=== PATIENT | female | born 1940 | race Caucasian/White ===

== ENCOUNTER → 2018-02-10 08:02 | Outpatient (CLI) | payer MEDICARE, OTHER, SELFPAY ==
[2018-02-10 12:09] LABS: Absolute Lymphocyte Count 1.07 X10^3/ul (0.83-4.51); Absolute Neutrophil Count 1.4 X10^3/uL (2.0-7.7); Basophil# 0.03 X10^3/uL; Basophil% 1.1 % (0-1); Eosinophils% 3.7 % (0-5); Hematocrit 39.1 % (37-47); Hemoglobin 13.1 g/dl (12.0-15.0); Lymphocyte # 1.07 X10^3/ul (4.0); Lymphocyte % 39.2 % (19-41); Mean Corp Hgb Conc 33.5 g/gl (32-36); Mean Corpuscular Hgb 32.2 pg (27.0-32.0); Mean Corpuscular Volume 96.1 fL (81-99); Mean Platelet Vol. 10.7 fl (6.2-12.0); Monocyte# 0.17 X10^3/uL; Monocyte% 6.2 % (0-10); Neutrophil # 1.36 X10^3/uL (2.7-7.7); Neutrophil % 49.8 % (47-70); POSITIVE COUNT NO; POSITIVE DIFFERENTIAL NO; POSITIVE MORPHOLOGY NO; Platelet Count 156 K/mm3 (150-450); RBC Distribution Width CV 14.1 % (11.6-14.6); RBC Distribution Width SD 48.2 fl (35.1-43.9); Red Blood Count 4.07 M/mm3 (4.2-5.4); White Blood Count 2.7 K/mm3 (4.4-11.0)
[2018-02-10 12:25] LABS: ALB/GLOB Ratio 1.2 RATIO (0.9-2.4); AST(SGOT) 17 U/L (15-37); Alanine Aminotransfer ALT/SGPT 23 U/L (13-56); Albumin, Serum 3.7 g/dL (3.2-5.0); Alkaline Phosphatase 73 U/L (45-117); Anion Gap 8 (5-15); BUN 11 mg/dL (7-18); BUN/Creat Ratio 15.3 RATIO (10-20); Calcium,Total 8.5 mg/dL (8.5-10.1); Chloride 108 mmol/L (98-107); Cholesterol 226 mg/dL (200); Creatinine, Serum 0.72 mg/dL (0.55-1.02); EST Glomerular Filtration Rate 83 mL/min (>60); Est Glom Filt Rate - Afr Amer 101 mL/min (>60); Globulin 3.2 g/dL (2.2-4.2); Glucose 88 mg/dL (74-106); High Density Lipoprotein 58 mg/dL; Potassium 3.7 mmol/L (3.5-5.1); Protein, Total 6.9 g/dL (6.4-8.2); Sodium Level 143 mmol/L (136-145); Triglycerides 122 mg/dL; Very Low Density Lipoprotein 24 mg/dL (5-40)
== END ==
PROVIDERS: Family Provider Family Medicine; PCP Family Medicine; Visit Provider Family Medicine
DX: Z00.01 Encounter for general adult medical examination with abnormal findings (principal); E78.5 Hyperlipidemia, unspecified; M85.80 Other specified disorders of bone density and structure, unspecified site; M19.041 Primary osteoarthritis, right hand; M19.042 Primary osteoarthritis, left hand; Z51.81 Encounter for therapeutic drug level monitoring
CPT/HCPCS: 36415; 80053; 80061; 85025

== ENCOUNTER → 2018-07-22 14:58 | Outpatient (CLI) | payer MEDICARE, OTHER, SELFPAY ==
[2018-07-22 17:50] LABS: Absolute Lymphocyte Count 0.93 X10^3/ul (0.83-4.51); Absolute Neutrophil Count 0.2 X10^3/uL (2.0-7.7); Basophil# 0.01 X10^3/uL; Basophil% 0.8 % (0-1); Eosinophil# 0.03 X10^3/uL; Eosinophils% 2.5 % (0-5); Hematocrit 34.6 % (37-47); Hemoglobin 11.7 g/dl (12.0-15.0); Lymphocyte # 0.93 X10^3/ul (4.0); Lymphocyte % 76.2 % (19-41); Mean Corp Hgb Conc 33.8 g/gl (32-36); Mean Corpuscular Hgb 33.8 pg (27.0-32.0); Mean Platelet Vol. 10.1 fl (6.2-12.0); Monocyte# 0.03 X10^3/uL; Monocyte% 2.5 % (0-10); Neutrophil # 0.22 X10^3/uL (2.7-7.7); Platelet Count 78 K/mm3 (150-450); RBC Distribution Width CV 15.2 % (11.6-14.6); RBC Distribution Width SD 55.1 fl (35.1-43.9); Red Blood Count 3.46 M/mm3 (4.2-5.4)
[2018-07-22 18:45] LABS: Differential Indicated SCAN CRITERIA MET; POSITIVE COUNT YES; POSITIVE DIFFERENTIAL YES; POSITIVE MORPHOLOGY YES
[2018-07-22 18:47] LABS: Platelet Estimate MOD DEC (ADEQ); Red Cell Morphology NORM C+C NORMAL (NORM C&C); White Blood Count 1.2 K/mm3 (4.4-11.0)
[2018-07-23 13:42] LABS: Pathologist Review Reviewed
== END ==
PROVIDERS: Family Provider Family Medicine; PCP Family Medicine; Visit Provider Family Medicine
DX: D72.810 Lymphocytopenia (principal)
CPT/HCPCS: 36415; 85025

== ENCOUNTER → 2018-08-05 07:13 | Outpatient (CLI) | payer MEDICARE, OTHER, SELFPAY ==
[2018-07-28 10:42] VITALS: BMI 25.4
[2018-08-05] VITALS (10 sets, daily range): BP systolic 89–132; BP diastolic 30–86; PULSE 68–93; RESP 12–18; TEMP 37.3; O2SAT 93–99; BMI 25.0
--- NOTE | 2018-08-05 | BMB_PTH ---
PATIENT: RICHIE MAR LOC: CT U#:[id number] AGE/SX: 84/F ROOM: RE08/05/[address]: Dr. Chan Pacheco MD : 1940 BED: DIS: SPEC #: [id number] RECD: 08/05/18 12:15 STATUS: NORAH BRITTANY #: [id number] GEORGINA: 08/05/18 00:[address]: Chan Pacheco DEPT: BONE MARROW RECD BY: Geoff Leo ENTERED: 08/05/18 12:17 SP TYPE: BMB OTHR DR: Dr. 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 Complete report of flow cytometry study is viewable in patient's PCR. Cytogenetic studies are pending at this time. SJ:richard 08/10/18 COMMENT Bone marrow smears are reviewed with Dr. Franklin who concurs with the above diagnosis. This case is discussed with Dr. Pacheco on 08/06/18. BONE MARROW STUDY Slides are reviewed. CBC DATE: 08/05/18 WBC 1.0; RBC 3.50; HGB 11.9; HCT 35.1; MCV 100.3; RDW 15.2; PLTS 96022 SEGS 22.5%; LYMPHS 64.3%; MONOS 11.2%; EOS 2.0%; BASOS 0% PERIPHERAL SMEAR: Submitted. RBC: Macrocytosis WBC: Leukopenia and neutropenia. Rare immature cells consistent with blasts are noted. PLTS: Decreased BONE MARROW ASPIRATE DIFFERENTIAL: 200 cell count. Blasts % (normal 0-2): 61 Promyelocytes % (normal 1-5): 1 Myelocytes and metamyelocytes % (normal 17-41): 9 Bands and Segs % (normal 15-32): 1 Eos % (normal 1-6): 1 Basos % (normal 0-1): 0 Monocytes % (normal 0-4): 0 Erythroid Precursors % (normal 17-35): 22 Lymphocytes % (normal 7-13): 4 Plasma Cells % (normal 0-2): 1 ASPIRATE FINDINGS: Site: Left hip Spicular, Cellular M/E ratio: 0.5 (Normal 1.5-4.0) Megakaryocytes: Decreased in number and a few micromegakaryocytes are also noted. Erythropoiesis: Focal mild megaloblastoid changes are noted. Granulopoiesis: Maturation arrest. Marked decrease of myelocytes, metamyelocytes and mature neutrophils are noted. Comment: Marked increase of immature cells consistent with blasts are noted. CORE BIOPSY FINDINGS: Site: Left hip Adequacy: Adequate Cellularity: 40% M/E ratio: Decreased Megakaryocytes: Decreased in number. Bony trabeculae: Limited in evaluation. Small amount of bony trabeculae are noted. Granulomas: Absent. Lymphoid aggregate: Absent. Atypical infiltrate: Present Comment: Immunohistochemistry ([id number]) supports the diagnosis of increased number of blasts. ASPIRATE CLOT FINDINGS: Site: Left hip Marrow particles: a few Cellularity: 40% M/E ratio: Decreased in number. Megakaryocytes: Decreased in number. Granulomas: Absent. Lymphoid aggregates: Absent. Atypical infiltrates: Present Comment: Immunohistochemistry ([id number]) supports the diagnosis of increased number of blasts. SPECIAL STAINS WITH MATCHED CONTROLS: Iron: Increased, 4+, atypical or ring sideroblasts are not seen. Reticulin: No significant increase of reticulin fibers is noted. PAS: Highlights myeloid cells and megakaryocytes. BONE MARROW GROSS A - Received is a container labeled with the patient's name and designated left hip bone marrow. The specimen consists of an elongated piece of louis bone measuring 0.6 cm in length and 0.1 cm in diameter. The specimen is totally submitted in one cassette after decalcification. B - Received labeled with the patient's name and designated left hip bone marrow is a specimen that consists of approximately multiple blood clots submitted for cell block preparation. C - Also received are 12 unstained slides. The unstained slides are submitted for appropriate staining. Also received are two green top tubes which are sent to our reference lab for flow, cytogenetics, FISH x2. / SJ:rg 08/05/18 TC:0 CPT: 00125, 63709, 15053 x2, 75550 x3, 28346 ADDENDUM ADDENDUM ADDENDUM ADDENDUM ADDENDUM ADDENDUM ADDENDUM ADDENDUM ADDENDUM ADDENDUM ADDENDUM ADDENDUM ADDENDUM ADDENDUM ADDENDUM ADDENDUM ADDENDUM ADDENDUM ADDENDUM ADDENDUM 08/18/2018 10:48 ADDENDUM 08/18/2018 10:48 ADDENDUM 08/18/2018 10:48 ADDENDUM 08/18/2018 10:48 ADDENDUM 08/18/2018 10:48 REPORTS FROM [facility] CYTOGENETICS REPORT CYTOGENETIC RESULT: 47,XX,+8[2]/46,XX[18] INTERPRETATION: MDS/MPN related clone detected MDS FISH PANEL FISH RESULT: 6.5% of nuclei positive for three chromosome 8 signals INTERPRETATION: MDS/MPN/AML related clone detected AML FISH PANEL FISH RESULT: Normal AML panel INTERPRETATION: The fluorescence in situ hybridization (FISH) study for the most common AML related chromosome changes was normal. DNA probes specific for oncogenes or chromosome regions at 5q33, 7q31, LAWL7G9/RUNX1, KMT2A (MLL), PML/RADHA, and CBFB showed normal hybridization signals in all interphase cells examined. Please see complete report in e-chart or EMR for further details
--- NOTE | 2018-08-05 | IMM_PTH ---
PATIENT: RICHIE MAR LOC: CT U#:[id number] AGE/SX: 84/F ROOM: RE08/05/[address]: Dr. Chan Pacheco MD : 1940 BED: DIS: SPEC #: [id number] RECD: 08/09/18 11:22 STATUS: NORAH REJosh #: [id number] GEORGINA: 08/05/18 00:[address]: Chan Pacheco DEPT: IMMUNOHISTOCHEMISTRY RECD BY: Harleen Beard ENTERED: 08/09/18 11:24 SP TYPE: IMMUNO OTHR DR: Dr. Janay Mena MD Tissues: A - Bone marrow of iliac crest B - Bone marrow of iliac crest Procedures: CD34 (initial) PHYSICIAN & INSTITUTION [place] [id number] SPECIMEN INFORMATION: Tissue Source: Bone marrow biopsy, A - Core, B - Clot Clinical Info: Pancytopenia, acute leukemia vs MDS vs aplasia Specimen Number: [id number] A & B CPT code: 69291 x2 METHODOLOGY: Deparaffinized sections of prefer/formalin-fixed tissue or PAP/DQ stained slides are incubated with monoclonal/polyclonal antibodies/oligonucleotide probes. Localization is made via biotin free immunoperoxidase method. Appropriate controls are performed and reacted as expected. Results on target cell population are indicated in the following table: RESULTS: ANTIBODY / CLONE RESULT Block A CD34 (QBEnd-10) positive Block B CD34 (QBEnd-10) positive These tests were developed and their performance characteristics determined by [facility]. They may not have been cleared or approved by the [place]. Food and Drug Administration. The FDA has determined that such clearance or approval is not necessary. INTERPRETATION: A. Bone marrow core biopsy: Increased number of blasts are noted consistent with acute myeloid leukemia. B. Bone marrow clot: Increased number of blasts are noted consistent with acute myeloid leukemia. SJ:richard 08/10/18
--- NOTE | 2018-08-05 07:18 | CT_ITS ---
PROCEDURE: CT GUIDED BONE marrow biopsy of the left iliac bone. DATE: August 05, 2018. INDICATION: Female, 78 years old. Pancytopenia. PHYSICIAN: Jose Jarquin M.D. RADIATION DOSAGE (If Supplied By Facility): CTDIvol = ( 16.6 ) mGy, DLP = ( 631.87 ) mGycm. Individualized dose optimization techniques were utilized. PROCEDURE: The risks, benefits, and alternatives to the procedure were explained to the patient. The specific risk of hemorrhage requiring further treatment or intervention was detailed and accepted. Follow-up instructions were discussed with the patient as well. Written informed consent was obtained. The patient was brought into the CT suite and placed in the prone position. . An appropriate entry site was identified. The overlying skin was prepped and draped in the usual sterile fashion. 1% lidocaine was administered subcutaneously for local anesthesia. Conscious sedation was performed. The patient received 2 mg of Versed and 50 mcg of fentanyl intravenously. Conscious sedation was started at 9:04 AM and terminated in 9:20 AM. The patient was independently monitored by the department nurse. Under CT guidance, a bone marrow biopsy of the posterior aspect of the left iliac bone was performed using an 11-gauge bone marrow biopsy kit. Bone marrow aspiration was obtained as well. The specimens were then placed in the appropriate fluid and transported to the laboratory for analysis. Hemostasis was obtained. The patient tolerated the procedure well without immediate complications. CT/Biopsy/Inj or Needle Placement IMPRESSION: Successful CT guided bone marrow biopsy of the left iliac bone, as described above. Electronically Signed: Jose Jarquin MD at 10:30 EST , Service support ,
[2018-08-05 07:33] LABS: Absolute Lymphocyte Count 0.63 X10^3/ul (0.83-4.51); Absolute Neutrophil Count 0.2 X10^3/uL (2.0-7.7); Eosinophil# 0.02 X10^3/uL; Hematocrit 35.1 % (37-47); Hemoglobin 11.9 g/dl (12.0-15.0); Lymphocyte # 0.63 X10^3/ul (4.0); Lymphocyte % 64.3 % (19-41); Mean Corp Hgb Conc 33.9 g/gl (32-36); Mean Corpuscular Volume 100.3 fL (81-99); Mean Platelet Vol. 9.4 fl (6.2-12.0); Monocyte# 0.11 X10^3/uL; Monocyte% 11.2 % (0-10); Neutrophil # 0.22 X10^3/uL (2.7-7.7); Neutrophil % 22.5 % (47-70); Platelet Count 53 K/mm3 (150-450); RBC Distribution Width CV 15.2 % (11.6-14.6); RBC Distribution Width SD 54.9 fl (35.1-43.9)
[2018-08-05 07:41] LABS: POSITIVE COUNT YES; POSITIVE DIFFERENTIAL YES; POSITIVE MORPHOLOGY YES
[2018-08-05 07:54] LABS: Differential Indicated SCAN CRITERIA MET
[2018-08-05 07:55] LABS: Differential Comment SCANNED; Hypochromasia 1+; Macrocytosis RARE; Platelet Estimate MKD DEC (ADEQ)
[2018-08-05 08:26] LABS: Partial Thromboplast Time 34.7 Seconds (24.1-36.2)
[2018-08-05 08:30] LABS: International Normalized Ratio 1.1; Prothrombin Time (Protime)PT. 14.3 SECONDS (11.7-14.9)
[2018-08-05] MEDS: Midazolam 2 MG/2 ML Syringe IV (09:04)
[2018-08-05] MEDS: fentaNYL 100 MCG/2 ML Ampul IV (09:04)
[2018-08-05 11:21] LABS: Pathologist Review Reviewed
== END ==
PROVIDERS: Family Provider Family Medicine; PCP Family Medicine; Referring Provider Internal Medicine Hematology & Oncology; Visit Provider Internal Medicine Hematology & Oncology
DX: D61.818 Other pancytopenia (principal); C92.00 Acute myeloblastic leukemia, not having achieved remission; J44.9 Chronic obstructive pulmonary disease, unspecified; M54.5 Low back pain; G89.29 Other chronic pain; E78.5 Hyperlipidemia, unspecified; D46.9 Myelodysplastic syndrome, unspecified
CPT/HCPCS: 38221; 36415; 77012; 85025; 85610; 85730; 88305; 88311; 88313; 88342; 99156; 99157; J7040